=== PATIENT | male | born 1980 | race Caucasian/White ===

== ENCOUNTER 2017-09-10 07:43 | Emergency (ER) ==
[2017-09-10 07:49] VITALS: BP 143/86; TEMP 98.6; BMI 31.4
[2017-09-10] MEDS ORDERED: ROCEPHIN IM STA (09:13)
[2017-09-10] MEDS ORDERED: LIDOCAINE HCL 1% SDV SUBCUT STA (09:13)
[2017-09-10] MEDS ORDERED: ZITHROMAX PO STA (09:14)
--- NOTE | 2017-09-10 09:19 | ED.PDOC ---
General ED Provider: Dr. MARIA DOLORES ESCOBAR Chief Complaint: Penile Problem Stated Complaint: EXPOSED TO STD Time Seen by Physician: 08:00 Mode of Arrival: Walk-In Information Source: Patient Exam Limitations: No limitations Primary Care Provider: WALLY ZAPATA Nursing and Triage Documentation Reviewed and Agree: Yes Reviewed sepsis parameters & appropriate labs ordered?: Yes (SEEN WITH MAY AT ALL TIMES ) System Inflammatory Response Syndrome: Not Applicable Sepsis Protocol: For patient's 13 years and over: Temp is 96.8 and below OR 101 and greater Pulse >90 BPM Resp >20/minute Acutely Altered Mental Status Are patient's symptoms suggestive of a new infection, such as: -Pneumonia -Skin, Soft Tissue -Endocarditis -UTI -Bone, Joint Infection -Implantable Device -Acute Abdominal Infection -Wound Infection -Meningitis -Blood Stream Catheter Infection -Unknown System Inflammatory Response Syndrome: Not Applicable Complaint Exam - STD Male Complaint/Exam Onset/Duration: 1 DAY Symptoms Are: Resolved Timing: Intermittent Initial Severity: Mild Current Severity: Mild Location: Reports: Penis Character: Recent STD exposure Aggravating: Reports: None Alleviating: Reports: None Associated Signs and Symptoms: Denies: Dysuria, Penile sores, Scrotal pain, Scrotal swelling, Testicular pain, Testicular swelling Related Surgical History: Reports: None Differential Diagnoses: STD, UTI Review of Systems - Review Of Systems Constitutional: Reports: No symptoms Eyes: Reports: No symptoms Ears, Nose, Mouth, Throat: Reports: No symptoms Respiratory: Reports: No symptoms Cardiac: Reports: No symptoms GI: Reports: No symptoms : Reports: Dysuria (MILD) Musculoskeletal: Reports: No symptoms Skin: Reports: No symptoms Neurological: Reports: No symptoms Endocrine: Reports: No symptoms Hematologic/Lymphatic: Reports: No symptoms All Other Systems: Reviewed and Negative Past Medical History - Past Medical History Previously Healthy: Yes Endocrine: Reports: None Cardiovascular: Reports: None Respiratory: Reports: None Hematological: Reports: None Gastrointestinal: Reports: None Genitourinary: Reports: None Neuro/Psych: Reports: None Musculoskeletal: Reports: None Cancer: Reports: None - Surgical History General Surgical History: Reports: None - Family History Family History: Reports: None - Social History Smoking Status: Current every day smoker, Heavy tobacco smoker Hx Substance Use: No Alcohol Screening: None Physical Exam - Physical Exam Appearance: Well-appearing, No pain distress, Well-nourished Eyes: ROD, EOMI, Conjunctiva clear ENT: Ears normal, Nose normal, Oropharynx normal Respiratory: Airway patent, Breath sounds clear, Breath sounds equal, Respirations nonlabored Cardiovascular: RRR, Pulses normal, No rub, No murmur GI/: Soft, Nontender, No masses, Bowel sounds normal, No Organomegaly Musculoskeletal: Normal strength, ROM intact, No edema, No calf tenderness Skin: Warm, Dry, Normal color Neurological: Sensation intact, Motor intact, Reflexes intact, Cranial nerves intact, Alert, Oriented Psychiatric: Affect appropriate, Mood appropriate Critical Care Note - Critical Care Note Total Time (mins): 0 Course - Course Orders, Labs, Meds: Lab Review 09/10/17 08:00 Urine Color Yellow Urine Clarity Clear Urine pH 6.0 Ur Specific [place] >=1.030 Urine Protein 2+ Urine Glucose (UA) Negative Urine Ketones Trace Urine Blood 1+ Urine Nitrite Negative Urine Bilirubin 1+ Urine Urobilinogen 1.0 Ur Leukocyte Esterase 2+ Urine Microscopic RBC 10-20 Urine Microscopic WBC 20-30 Ur Squamous Epith Cells Not present Urine Bacteria 1+ Urine Mucus 1+ Urine Sperm Trace Orders Category Date Time Status UA [URINALYSIS C & S IF INDICATED] Stat LAB 09/10/17 08:00 Completed URINE CULTURE Stat LAB 09/10/17 08:00 Received Azithromycin [Zithromax] MEDS 09/10/17 09:14 Stat 1,000 mg PO ONCE STA Ceftriaxone Sodium [Rocephin] MEDS 09/10/17 09:13 Stat 1 gm IM ONCE STA Lidocaine HCl/Pf [Lidocaine HCl 1% Sdv] MEDS 09/10/17 09:13 Stat 5 ml SUBCUT ONCE STA Medications Discontinued Medications Generic Name Dose Route Start Last Admin Trade Name Merrittq PRN Reason Stop Dose Admin Azithromycin 1,000 mg 09/10/17 09:14 Zithromax PO 09/10/17 09:15 ONCE STA Ceftriaxone Sodium 1 gm 09/10/17 09:13 Rocephin IM 09/10/17 09:14 ONCE STA Lidocaine HCl 5 ml 09/10/17 09:13 Lidocaine Hcl 1% Sdv SUBCUT 09/10/17 09:14 ONCE STA Vital Signs: Temp Pulse Resp BP Pulse Ox 09/10/17 07:44 98.6 F 98 H 20 143/86 H 97 Departure - Departure Time of Disposition: : Disposition: HOME SELF-CARE Discharge Problem: STD (male) UTI (urinary tract infection) Qualifiers: Urinary tract infection type: site unspecified Hematuria presence: with hematuria Qualified Code(s): N39.0 - Urinary tract infection, site not specified ; R31.9 - Hematuria, unspecified; R31.9 - Hematuria, unspecified Instructions: Urinary Tract Infection in Men (ED), Sexually Transmitted Diseases (ED) Condition: Good Pt referred to PMD for follow-up: Yes Additional Instructions: Please call your Family Physician as soon as possible to schedule a follow-up appointment. MUST HAVE REPEAT URINE TEST IN 4 DAYS Allergies/Adverse Reactions: Allergies No Known Allergies Allergy (Verified 09/10/17 07:51) Home Medications: Ambulatory Orders 1 [No Reported Medications] 09/10/17
== END 2017-09-10 09:58 | disposition home or self-care (01) ==
LOC: ED 07:43
DX: A64 Unspecified sexually transmitted disease (principal); N39.0 Urinary tract infection, site not specified; F17.210 Nicotine dependence, cigarettes, uncomplicated
CPT/HCPCS: 81001; 87086; 96372; 99283